=== PATIENT | male | born 1980 | race Caucasian/White ===

== ENCOUNTER 2019-03-24 03:53 | Inpatient (IN) | payer BC ==
[~2019-03-24] VITALS: Ht 175.3 cm; Wt 72.6 kg
--- NOTE | 2019-03-24 04:16 | NUR ---
PT BIBSELF C/O ABD' PAIN X 5 HR, + VOMITTING AND LOOSE STOOL, -HEMOPTYSIS, VS STABLE, AFEBRILE, PLACED ON ER BED 10, AWAITING FOR DR IVY TO FLAVIA.
[2019-03-24] MEDS ORDERED: IV NS 0.9% 1,000 ML BAG IV ONE (04:30)
[2019-03-24] MEDS ORDERED: ONDANSETRON HCL/PF 4 MG/2 ML VIAL IVP ONE (04:30)
[2019-03-24] MEDS ORDERED: HYDROMORPHONE INJ 2 MG/ML DISP.SYRIN IV ONE (04:30)
--- NOTE | 2019-03-24 04:38 | NUR ---
US GALLBLADDER DONE AT BEDSIDE.
[2019-03-24] MEDS ORDERED: ONDANSETRON HCL/PF 4 MG/2 ML VIAL ONE (04:43)
[2019-03-24] MEDS ORDERED: HYDROMORPHONE INJ 2 MG/ML DISP.SYRIN ONE (04:43)
[2019-03-24 04:51] LABS: BASOPHILS # (AUTO) 0.1 /CMM (0.0-0.2); BASOPHILS % (AUTO) 0.4 % (0.0-2.0); EOSINOPHILS % (AUTO) 1.6 % (0.0-6.0); HEMATOCRIT 40 % (39-51); HEMOGLOBIN 13.3 g/dL (13.5-17.5); LYMPHOCYTES # (AUTO) 2.5 /CMM (0.8-4.8); MEAN CORPUSCULAR HGB CONC 33 g/dl (31.0-36.0); MEAN CORPUSCULAR VOLUME 85 fL (80-96); MONOCYTES # (AUTO) 1.4 /CMM (0.1-1.30); MONOCYTES % (AUTO) 8.5 % (2.0-12.0); NEUTROPHILS # (AUTO) 12.4 /CMM (1.8-8.9); NEUTROPHILS % (AUTO) 74.5 % (43.0-81.0); PLATELET COUNT (AUTO) 354 /CMM (150-450); RED BLOOD CELL COUNT(AUTO) 4.71 MIL/uL (4.5-6.0); WHITE BLOOD COUNT (AUTO) 16.6 K/uL (4.3-11.0)
[2019-03-24 05:06] LABS: ALANINE AMINOTRANSFERASE 24 U/L (12-78); ALBUMIN 4.3 g/dL (3.4-5.0); ALKALINE PHOSPHATASE 66 U/L (46-116); ASPARTATE AMINOTRANSFERASE 20 U/L (15-37); BILIRUBIN,DIRECT 0.1 mg/dL (0.0-0.2); BILIRUBIN,TOTAL 0.5 mg/dL (0.2-1.0); CALCIUM, SERUM 9.7 mg/dL (8.5-10.1); CARBON DIOXIDE 30 mmol/L (21-32); CHLORIDE 102 mmol/L (98-107); CREATININE 1.1 mg/dL (0.6-1.3); GLUCOSE 128 mg/dL (74-106); LIPASE 99 U/L (73-393); POTASSIUM 3.6 mmol/L (3.5-5.1); SODIUM SERUM 143 mmol/L (136-145); TOTAL PROTEIN, SERUM 7.6 g/dL (6.4-8.2); UREA NITROGEN, BLOOD 16 mg/dL (7-18)
--- NOTE | 2019-03-24 05:26 | NUR ---
PT TAKEN TO CT ABD' AND PELVIS.
[2019-03-24] MEDS ORDERED: KETOROLAC TROMETHAMINE INJ 30 MG/ML VIAL ONE (05:47)
[2019-03-24] MEDS ORDERED: HYDROMORPHONE 1 MG/1 ML DISP.SYRIN ONE (05:48)
[2019-03-24] MEDS ORDERED: PIPERACILLIN /TAZOBACTAM 3.375 G VIAL IV ONE (05:52)
--- NOTE | 2019-03-24 05:55 | NUR ---
BED 203
[2019-03-24] MEDS ORDERED: KETOROLAC TROMETHAMINE INJ 30 MG/ML VIAL IV ONE (06:00)
[2019-03-24] MEDS ORDERED: HYDROMORPHONE 1 MG/1 ML DISP.SYRIN IV ONE ×3 (06:00→19:00)
[2019-03-24] MEDS ORDERED: PIPERACILLIN /TAZOBACTAM 3.375 G in IV D5W 50 ML IV ONE (06:00)
[2019-03-24 06:57] LABS: APPEARANCE,URINE CLEAR (CLEAR); BILIRUBIN,URINE NEGATIVE (NEGATIVE); BLOOD, URINE NEGATIVE Ery/uL (NEGATIVE); COLOR,URINE YELLOW (YELLOW); KETONES,URINE 1+ (NEGATIVE); LEUKOCYTE ESTERASE ,URINE NEGATIVE (NEGATIVE); NITRITE, URINE NEGATIVE (NEGATIVE); OCCULT BLOOD STOOL NEGATIVE (NEGATIVE); PH,URINE 7.5 (5.0-8.0); PROTEIN,URINE NEGATIVE (NEGATIVE); UGLUCOSE NEGATIVE (NEGATIVE); UROBILINOGEN,URINE 0.2 EU/dL (0.2)
[2019-03-24] MEDS ORDERED: BALS750C PO (07:11)
[2019-03-24] MEDS ORDERED: PRED5TAB48 PO (07:11)
--- NOTE | 2019-03-24 07:18 | NUR ---
GAVE REPORT TO KELVIN DE LA CRUZ NETO
--- NOTE | 2019-03-24 07:48 | NUR ---
REPORT GIVEN TO Reinaldo LORENZO RN
[2019-03-24 08:00] VITALS: BP 115/69
--- NOTE | 2019-03-24 08:10 | NUR ---
wheeled out via wheelchair by EMT and transferred to MS unit
--- NOTE | 2019-03-24 08:30 | NUR ---
PRACTICE MANAGEMENT CONSULTANT NOTES PT ARRIVED ONTO THE UNIT AT 0830. PT COMPLAINS OF ABDOMINAL PAIN FOR 6 WEEKS. ALL PT BELONGINGS ACCOUNTED FOR AND DOCUMENTED. WILL WAIT FOR ORDERS.
[2019-03-24] MEDS ORDERED: IV NS 0.9% 1,000 ML BAG IV PRN (09:30)
[2019-03-24] MEDS ORDERED: MORPHINE SULFATE INJ 4 MG/ML DISP.SYRIN IV PRN ×2 (09:30→13:30)
--- NOTE | 2019-03-24 09:30 | NUR ---
RN NOTES INFORMED DR OQUENDO OF NEW ADMISSION. DR OQUENDO ORDERED NS @100ML/HR AND MORPHINE 2MG Q4H PRN. WILL CARRY OUT ORDERS.
[2019-03-24] MEDS: IV NS 0.9% 1,000 ML IV PRN (10:08)
[2019-03-24] MEDS ORDERED: ONDANSETRON HCL/PF 4 MG/2 ML VIAL IVP PRN (11:00)
[2019-03-24] MEDS ORDERED: PIPERACILLIN /TAZOBACTAM 4.5 G in IV D5W 50 ML IV SCH (12:00)
[2019-03-24] MEDS: PIPERACILLIN /TAZOBACTAM 3.375 G in IV D5W 100 ML IV SCH ×2 (13:00→20:38)
--- NOTE | 2019-03-24 13:00 | NUR ---
RN NOTES INFORMED DR OQUENDO THAT PATIENT STILL COMPLAINING OF PAIN. DR OQUENDO ORDERED TO INCREASE MORPHINE TO 3MG Q4H.
--- NOTE | 2019-03-24 14:30 | NUR ---
RN NOTES INFORMED DR OQUENDO THAT 3MG MORPHINE NOT IMPROVING PATIENT'S PAIN. AT THIS TIME NO NEW ORDERS.
[2019-03-24 16:00] VITALS: BP 143/72
--- NOTE | 2019-03-24 17:54 | NUR ---
RN NOTES PER RADIOLOGY PATIENT CANNOT HAVE MORPHINE 4-6 HOURS BEFORE HIDA SCAN. [address] OQUENDO ORDERED ONE TIME ORDER OF DILAUDID. SCAN TIME CHANGED FROM 3PM TO 7PM. WILL ADMINISTER ONE TIME ORDER AT 1830.
[2019-03-24 17:56] LABS: ALBUMIN 3.8 g/dL (3.4-5.0); BILIRUBIN,DIRECT 0.2 mg/dL (0.0-0.2); BILIRUBIN,TOTAL 1.4 mg/dL (0.2-1.0)
--- NOTE | 2019-03-24 19:30 | NUR ---
RN NOTES: RECEIVED REPORT FROM TAVO LOZANO, PT CURRENTLY OFF THE UNIT, HIDA SCAN ONGOING
--- NOTE | 2019-03-24 20:27 | NUR ---
RN NOTES: PT BACK FROM HIDA SCAN , PER NELLIE NUCLEAR MED, "THEY DIDN'T SEE GALLBLADDER", DO NOT GIVE ANYTHING INCLUDING PAIN MEDS OR FOOD, HE WILL STUDIO ASSOCIATE PT AT 2230 FOR ANOTHER DELAYED IMAGING FOR 10MINS.
--- NOTE | 2019-03-24 20:28 | NUR ---
RN NOTES: PT ASSISTED BACK TO BED, A/O X4, ON RA RESPIRATION EVEN AND UNLABORED, STATED PAIN IS TOLERABLE /10, RUQ PAIN, IV ACCESS PATENT AND FLUSHING WELL, CONNECTED BACK TO IVF ORDERED. DISCUSSED PLAN OF CARE TO PT. SAFETY PRECAUTIONS FOR FALL INITIATED, CALL LIGHT IN REACH, WILL CONTINUE MONITORING PT.
--- NOTE | 2019-03-24 20:30 | NUR ---
RN NOTES: CLARIFIED WITH NELLIE VARNER IF CAN GIVE ATB ZOSYN THRU IV, PER NELLIE SWANN TO GIVE ANTIBIOTIC
--- NOTE | 2019-03-24 20:51 | NUR ---
LATE REASSESSMENT OF DILAUDID X 1: PT GOT BACK FROM HIDA SCAN, PER PT DILAUDID HELPED WITH HIS PAIN THAN MORPHINE, PS 04/15, CLAIMED ITS TOLERABLE
--- NOTE | 2019-03-24 21:04 | NUR ---
RN NOTES: ACCORDING TO PT, MORPHINE DOESNT HELP MANAGE HIS PAIN, HE WAS GIVEN DILAUDID PRIOR TO GOING TO HIDA SCAN, PT CLAIMED ITS MORE EFFECTIVE THAN MORPHINE, CONTACTED MD MASTER BAKER, RELAYED THE SITUATION, RECEIVED TELEPHONE ORDER OF "DILAUDID 1MG IVP Q4HRS PRN FOR SEVERE PAIN", DC MORPHINE ORDER. READ BACK COMPLETED, ORDERS NOTED AND CARRIED OUT.
[2019-03-24 21:11] VITALS: BP 136/74
--- NOTE | 2019-03-24 22:41 | NUR ---
RN NOTES: NELLIE CAME BACK TO SEC REPORTING CONSULTANT PT, BROUGHT DOWN TO NM FOR DELAYED IMAGING FOR 10MINS.
--- NOTE | 2019-03-24 23:13 | NUR ---
RN NOTES: PT BACK TO THE UNIT, TEST COMPLETED, PER NELLIE NOW OKAY TO RECEIVE PAIN MEDS AND RESUME DIET IF ANYTHING IS ORDER
[2019-03-24] MEDS: HYDROMORPHONE 1 MG/1 ML DISP.SYRIN IV PRN (23:17)
--- NOTE | 2019-03-24 23:17 | NUR ---
PRN DILAUDID: PT C/O RUQ ABDOMINAL PAIN 06/15 REQUESTING FOR PAIN MEDICATION, PRN DILAUDID 1MG IVP ADMINISTERED TO THE PT AT THIS TIME. EDUCATE PT REGARDING MEDICATION ACTION AND SIDE EFFECTS. PLACED PT ON LOW FLOW OXYGEN SUPPLEMENT 2L NC. URINAL PLACED WITHIN REACH, CALL LIGHT IN REACH. WILL CONTINUE TO MONITOR AND REASSESS PT
--- NOTE | 2019-03-25 03:42 | NUR ---
RN NOTES: MD MADE AWARE OF HIDA SCAN RESULT
[2019-03-25] MEDS: PIPERACILLIN /TAZOBACTAM 3.375 G in IV D5W 100 ML IV SCH ×3 (04:00→20:44)
[2019-03-25 04:30] VITALS: BP 121/69
[2019-03-25] MEDS: HYDROMORPHONE 1 MG/1 ML DISP.SYRIN IV PRN ×3 (04:36→18:39)
--- NOTE | 2019-03-25 04:36 | NUR ---
PRN DILAUDID: PT C/O 06/15 RUQ ABDOMINAL PAIN REQUESTING FOR PAIN MEDICATION, PRN DILAUDID 1MG IVP ADMINISTERED AT THIS TIME, WILL CONTINUE TO MONITOR AND REASSESS PT. TAKEN PT'S VS NOTED 100.9 TEMP, COOLING MEASURES PROVIDED, THICK BLANKET OFF/REMOVED, ICE PACK PROVIDED, WILL RECHECK TEMP AGAIN
--- NOTE | 2019-03-25 05:33 | NUR ---
RN NOTES: RECHECK TEMP, 100.6 , CONTINUE COOLING MEASURES
--- NOTE | 2019-03-25 06:50 | NUR ---
RN CLOSING NOTES: PT REMAINS ON 2L OXYGEN VIA NC, RESPIRATION EVEN AND UNLABORED, LAST PAIN MEDS ADMINISTERED AT 0436AM. IV ACCESS REMAINS PATENT AND FLUSHING WELL, INFUSING WITH IVF ORDERED. PT KEPT ON NPO ORDERED. VS REMAINS STABLE, NEEDS ATTENDED. SAFETY PRECAUTIONS FOR FALL REMAINS ENGAGED, CALL LIGHT IN REACH, WILL ENDORSE TO DAY RN FOR CONTINUITY OF CARE.
[2019-03-25 06:54] LABS: BASOPHILS % (AUTO) 0.1 % (0.0-2.0); EOSINOPHILS % (AUTO) 0.2 % (0.0-6.0); HEMATOCRIT 38 % (39-51); HEMOGLOBIN 12.6 g/dL (13.5-17.5); LYMPHOCYTES # (AUTO) 1.8 /CMM (0.8-4.8); MEAN CORPUSCULAR HGB CONC 34 g/dl (31.0-36.0); MEAN CORPUSCULAR VOLUME 86 fL (80-96); MONOCYTES # (AUTO) 1.7 /CMM (0.1-1.30); MONOCYTES % (AUTO) 10.8 % (2.0-12.0); NEUTROPHILS # (AUTO) 12.4 /CMM (1.8-8.9); NEUTROPHILS % (AUTO) 77.9 % (43.0-81.0); PLATELET COUNT (AUTO) 276 /CMM (150-450); RED BLOOD CELL COUNT(AUTO) 4.39 MIL/uL (4.5-6.0)
--- NOTE | 2019-03-25 07:15 | NUR ---
MS/RN OPENING NOTE THE PATIENT ALERT AND ORIENTED X4. DENIES PAIN AT THIS TIME. RESPIRATION REGULAR AND UNLABORED. DENIES PAIN. LAC G 20 PATENT AND NORMAL SALINE INFUSING AT 100ML/HR AND NO S/S INFILTRATION NOTED. BED LOW AND LOCKED. SIDE RAILS UP X3. CALL LIGHT WITHIN REACH. WILL CONTINUE TO MONITOR.
[2019-03-25 07:19] LABS: THYROID STIMULATING HORMONE 0.632 uIU/mL (0.358-3.74)
[2019-03-25 07:28] LABS: ALBUMIN 3.5 g/dL (3.4-5.0); BILIRUBIN,TOTAL 1.5 mg/dL (0.2-1.0); CALCIUM, SERUM 9.2 mg/dL (8.5-10.1); CREATININE 1.1 mg/dL (0.6-1.3); MAGNESIUM 1.9 mg/dL (1.8-2.4); PHOSPHORUS 3.5 mg/dL (2.5-4.9); TOTAL PROTEIN, SERUM 6.9 g/dL (6.4-8.2)
[2019-03-25] MEDS: PANTOPRAZOLE 40 MG TABLET.DR PO SCH (07:30)
[2019-03-25 08:00] VITALS: BP 118/73
--- NOTE | 2019-03-25 12:23 | NUR ---
MS/RN NOTE THE PATIENT`S TEMP 103.1. LEFT MSG TO DR OQUENDO TO CALL BACK FOR AN ORDER. COOLING MEASURES TAKEN
--- NOTE | 2019-03-25 13:00 | NUR ---
MS/RN NOTE STILL NOT CALL FROM DR OQUENDO. TEMP LOWERED TO 100.3F AFTER COOLING MEASURES. WILL CONTINUE TO MONITOR.
[2019-03-25] MEDS ORDERED: ACETAMINOPHEN 325 MG TABLET PO ONE (13:30)
--- NOTE | 2019-03-25 13:31 | NUR ---
MS/RN NOTE TYLENOL 650 MG PO DUE AT 1331 NOT ADMINISTERED BECAUSE TEMP LOWERED TO 97.9.
[2019-03-25 16:00] VITALS: BP 128/76
--- NOTE | 2019-03-25 18:15 | NUR ---
MS/RN NOTE TEMP 101.8. COOLING MEASURE DONE.
--- NOTE | 2019-03-25 18:22 | NUR ---
MS/RN CLOSING NOTE THE PATIENT ALERT AND ORIENTED X4. IN ROOM AIR AND SATURATION IS AT 98%. RESPIRATION REGULAR AND UNLABORED. DENIES PAIN. THE PATIENT IN NO APPARENT DISTRESS. ABDOMEN SOFT AND NON-DISTENDED. THE PATIENT ABLE TO VOID FREELY AND NOTED CLEAR, DARK YELLOW COLOR URINE WITH NO FOUL ODOR. NO BLADDER DISTENSION NOTED. GOOD AND GENTLE SKIN CARE RENDERED. KEPT CLEAN, DRY AND COMFORTABLE. ALL NEEDS ATTENDED AND ANTICIPATE. CALL LIGHT WITHIN REACH. WILL ENDORSE TO TRUCK SHOP MECHANIC.
--- NOTE | 2019-03-25 18:30 | NUR ---
MS/RN NOTE TEMP 100.3. CONTINUING COOLING MEASURES. DR OQUENDO IS AWARE.
--- NOTE | 2019-03-25 19:30 | NUR ---
MS RN NOTE: PATIENT RESTING IN BED, NO ACUTE DISTRESS NOTED. BREATHING EVEN AND UNLABORED, NO SOB NOTED. IV TO LAC IN PLACE, INFUSING NS AT 100ML/HR. BED LOCKED AND IN LOWEST POSITION, CALL LIGHT IN REACH. WILL CONTINUE TO MONITOR.
[2019-03-25 20:00] VITALS: BP 128/69
[2019-03-25] MEDS: IV NS 0.9% 1,000 ML IV PRN (20:44)
--- NOTE | 2019-03-25 22:15 | NUR ---
MS RN NOTE: PATIENT SCHEDULED FOR SURGERY TOMORROW MORNING AT 0730. CONSENTS SIGNED AND IN CHART. PATIENT NPO. WILL CONTINUE TO MONITOR.
[2019-03-26] VITALS (8 sets, daily range): BP systolic 119–131; BP diastolic 60–80
[2019-03-26] MEDS: HYDROMORPHONE 1 MG/1 ML DISP.SYRIN IV PRN ×4 (01:44→22:33)
[2019-03-26] MEDS: PIPERACILLIN /TAZOBACTAM 3.375 G in IV D5W 100 ML IV SCH ×3 (04:22→20:37)
--- NOTE | 2019-03-26 06:10 | NUR ---
MS RN NOTE: PATIENT RESTING IN BED, NO ACUTE DISTRESS NOTED. BREATHING EVEN AND UNLABORED, NO SOB NOTED. IV TO LAC IN PLACE. PATIENT TO HAVE SURGERY THIS MORNING, CONSENT SIGNED AND FILED IN CHART. BED LOCKED AND IN LOWEST POSITION, CALL LIGHT IN REACH. WILL ENDORSE TO DAY NURSE TO CONTINUE WITH PLAN OF CARE.
[2019-03-26 06:35] LABS: BASOPHILS % (AUTO) 0.3 % (0.0-2.0); EOSINOPHILS % (AUTO) 1.3 % (0.0-6.0); HEMATOCRIT 36 % (39-51); HEMOGLOBIN 12.2 g/dL (13.5-17.5); LYMPHOCYTES # (AUTO) 1.9 /CMM (0.8-4.8); LYMPHOCYTES % (AUTO) 14.4 % (20.0-44.0); MEAN CORPUSCULAR HGB CONC 34 g/dl (31.0-36.0); MEAN CORPUSCULAR VOLUME 86 fL (80-96); MONOCYTES % (AUTO) 7.8 % (2.0-12.0); NEUTROPHILS % (AUTO) 76.2 % (43.0-81.0); PLATELET COUNT (AUTO) 269 /CMM (150-450); RED BLOOD CELL COUNT(AUTO) 4.21 MIL/uL (4.5-6.0); WHITE BLOOD COUNT (AUTO) 13.1 K/uL (4.3-11.0)
[2019-03-26] MEDS ORDERED: ANESTHESIA TRAY IN PYXIS 1 EA TRAY MC ONE (06:55)
[2019-03-26] MEDS ORDERED: BUPIVACAINE 0.5 % PF 150 MG/30 ML VIAL ONE (07:01)
[2019-03-26 07:19] LABS: ALBUMIN 3.1 g/dL (3.4-5.0); MAGNESIUM 2.1 mg/dL (1.8-2.4); PHOSPHORUS 2.4 mg/dL (2.5-4.9); POTASSIUM 3.9 mmol/L (3.5-5.1); TOTAL PROTEIN, SERUM 7.1 g/dL (6.4-8.2)
[2019-03-26] MEDS ORDERED: FENTANYL PF 100MCG/2ML AMPUL ONE ×2 (07:26→07:27)
[2019-03-26] MEDS ORDERED: MIDAZOLAM HCL 2 MG/2ML VIAL ONE (07:27)
[2019-03-26] MEDS: PANTOPRAZOLE 40 MG TABLET.DR PO SCH (07:30)
[2019-03-26 08:16] LABS: IMMUNOGLOBULIN A, SERUM 40 mg/dL (90-386); IMMUNOGLOBULIN G, SERUM 711 mg/dL (700-1600); IMMUNOGLOBULIN M, SERUM 123 mg/dL (20-172)
[2019-03-26] MEDS ORDERED: HYDROMORPHONE 1 MG/1 ML DISP.SYRIN ONE (09:05)
--- NOTE | 2019-03-26 09:56 | NUR ---
MS/RN NOTE THE PATIENT IS RECEIVED FROM OR IN BED. PATIENT ALERT AND ORIENTED X2. RECEIVING OXYGEN AT 2L/MIN VIA NASAL CANNULA. DENIES SOB. DENIES PAIN. FRANKLIN DRAIN PRESENT ON RIGHT ABDOMINAL QUAD WITH SEROUS DRAINAGE. INCISIONS INTACT WITH NO DRAINAGE. LAC G 20 PATENT AND SALINE LOCKED. BED LOW AND LOCKED. SIDE RAILS UP X3. CALL LIGHT WITHIN REACH. WILL CONTINUE TO MONITOR.
[2019-03-26] MEDS ORDERED: HYDROCODONE/APAP 5/325MG 1 EACH TABLET PO PRN (10:30)
--- NOTE | 2019-03-26 12:05 | NUR ---
MS/RN NOTE BLOOD SUGAR IS 43. WILL CHECK IT AGAIN. Addendum: 03/26/19 at 1428 by GLORIA DE LA TORRE RN ENTERED ON WRONG PATIENT
[2019-03-26] MEDS: IV NS 0.9% 1,000 ML IV PRN (12:11)
[2019-03-26] MEDS ORDERED: NEUTRA PHOS 1 POWD.PACKET PO ONE (16:00)
--- NOTE | 2019-03-26 18:27 | NUR ---
MS/RN NOTE THE PATIENT ALERT AND ORIENTED X4. IN ROOM AIR AND SATURATION IS AT 97%. DENIES SOB. RESPIRATION REGULAR AND UNLABORED. DENIES PAIN AT THIS TIME. FRANKLIN DRAIN PRESENT AND DRAINING SEROUS FLUID. THE THREE INCISIONS CLEAN AND DRY. NO S/S INFECTION NOTED. PATIENT IS ON CLEAR LIQUID DIET AND JOHANNE IT WELL. LAC G 20 PATENT AND NORMAL SALINE INFUSING AT 100ML/HR AND NO S/S INFILTRATION NOTED. BED LOW AND LOCKED. SIDE RAILS UP X3. CALL LIGHT WITHIN REACH. WILL ENDORSE TO ORDNANCE ENGINEERING TECHNICIAN.
--- NOTE | 2019-03-26 18:57 | NUR ---
MS/RN NOTE 90 ML OF SEROUS FLUID WAS NOTED IN FRANKLIN DRAIN DURING THE SHIFT.
--- NOTE | 2019-03-26 19:43 | NUR ---
MS RN NOTE: PATIENT RESTING IN BED, NO ACUTE DISTRESS NOTED. BREATHING EVEN AND UNLABORED, NO SOB NOTED. IV TO LAC IN PLACE, INFUSING NS AT 100ML/HR. FRANKLIN DRAIN PLACE, EMPTY AT THIS TIME WITH GOOD SUCTION. BED LOCKED AND IN LOWEST POSITION, CALL LIGHT IN REACH. WILL CONTINUE TO MONITOR.
[2019-03-26] MEDS: HYDROCODONE/APAP 5/325MG 1 EACH TABLET PO PRN (20:52)
--- NOTE | 2019-03-26 21:00 | NUR ---
MS RN NOTE: PATIENT COMPLAINS OF ABDOMINAL PAIN 05/15, NORCO 5/325MG 1 TAB ORAL GIVEN PER MD ORDER. WILL CONTINUE TO MONITOR.
--- NOTE | 2019-03-26 22:45 | NUR ---
MS RN NOTE: PATIENT REPOSITIONED SELF AND COMPLAINS OF ABDOMINAL PAIN 07/16, DILAUDID 1MG IV GIVEN GIVEN PER MD ORDER. WILL CONTINUE TO MONITOR.
[2019-03-27] MEDS: PIPERACILLIN /TAZOBACTAM 3.375 G in IV D5W 100 ML IV SCH ×2 (04:53→13:20)
[2019-03-27] MEDS: IV NS 0.9% 1,000 ML IV PRN (04:55)
[2019-03-27] MEDS: HYDROMORPHONE 1 MG/1 ML DISP.SYRIN IV PRN (05:22)
--- NOTE | 2019-03-27 06:15 | NUR ---
MS RN NOTE: PATIENT RESTING IN BED, NO ACUTE DISTRESS NOTED. BREATHING EVEN AND UNLABORED, NO SOB NOTED. IV TO LAC IN PLACE, INFUSING NS AT 100ML/HR. FRANKLIN DRAIN PLACE, DRAINED 50ML OF SEROSANGUINEOUS DRAINAGE WITH GOOD SUCTION. BED LOCKED AND IN LOWEST POSITION, CALL LIGHT IN REACH. WILL ENDORSE TO DAY NURSE TO CONTINUE WITH PLAN OF CARE.
[2019-03-27 07:21] LABS: BASOPHILS % (AUTO) 0.1 % (0.0-2.0); HEMATOCRIT 32 % (39-51); LYMPHOCYTES # (AUTO) 0.9 /CMM (0.8-4.8); LYMPHOCYTES % (AUTO) 8.5 % (20.0-44.0); MEAN CORPUSCULAR HGB CONC 34 g/dl (31.0-36.0); MEAN CORPUSCULAR VOLUME 85 fL (80-96); MONOCYTES # (AUTO) 0.7 /CMM (0.1-1.30); MONOCYTES % (AUTO) 6.7 % (2.0-12.0); NEUTROPHILS % (AUTO) 84.7 % (43.0-81.0); PLATELET COUNT (AUTO) 298 /CMM (150-450); RED BLOOD CELL COUNT(AUTO) 3.82 MIL/uL (4.5-6.0); WHITE BLOOD COUNT (AUTO) 10.6 K/uL (4.3-11.0)
[2019-03-27 07:38] LABS: CALCIUM, SERUM 8.8 mg/dL (8.5-10.1); MAGNESIUM 2.2 mg/dL (1.8-2.4); PHOSPHORUS 3.1 mg/dL (2.5-4.9); POTASSIUM 4.2 mmol/L (3.5-5.1)
[2019-03-27 08:00] VITALS: BP 127/80
[2019-03-27 08:05] LABS: CREATININE 0.8 mg/dL (0.6-1.3)
[2019-03-27] MEDS: PANTOPRAZOLE 40 MG TABLET.DR PO SCH (08:58)
--- NOTE | 2019-03-27 09:10 | NUR ---
POLISH COMPOUNDER NOTES RN RECEIVED PATIENT IN STABLE CONDITION FROM [facility]. A/OX4, ABLE TO MAKE NEEDS KNOWN. NOT IN ANY FORM OF DISTRESS, NO SOB. DENIED PAIN OR DISCOMFORT AT THIS TIME. IV ACCESS, INTACT AND PATENT.FRANKLIN DRAIN IN PLACE. KEPT PATIENT SAFE AND COMFORTABLE. BED IN LOW/LOCKED POSITION, SIDERAILS UPX2, CALL LIGHT IN REACH. WILL CONTINUE TO MONITOR ACCORDINGLY.
--- NOTE | 2019-03-27 09:26 | NUR ---
EMPTIED FRANKLIN DRAIN, OUTPUT 35CC. KEPT DRAIN DEFLATED.
--- NOTE | 2019-03-27 13:00 | NUR ---
EMPTIED FRANKLIN DRAIN, OUTPUT 10CC. KEPT FRANLKIN DRAIN DEFLATED.
[2019-03-27] MEDS ORDERED: HYDR-4384 PO (13:14)
[2019-03-27 14:10] LABS: *ANCANTIMYELOPEROXIDASE (MPO) <9.0 U/mL (0.0-9.0); *ANCANTIPROTEINASE 3 (PR-3) AB <3.5 U/mL (0.0-3.5)
[2019-03-27 15:08] LABS: *ANCA ATYPICAL p-ANCA <1:20 titer (Neg:<1:20); *ANCA CYTOPLASMIC (C-ANCA) <1:20 titer (Neg:<1:20); *ANCA PERINUCLEAR (P-ANCA) <1:20 titer (Neg:<1:20)
[2019-03-27 16:00] VITALS: BP 111/70
[2019-03-27] MEDS: HYDROCODONE/APAP 5/325MG 1 EACH TABLET PO PRN (16:26)
--- NOTE | 2019-03-27 17:30 | NUR ---
DISCHARGED PATIENT IN STABLE CONDITION PICKED UP BY GIRLFRIEND. ACCOMPANIED BY BERENICE GONZALES AT THE [facility]. DISCHARGED INSTRUCTIONS GIVEN, VERBALIZED UNDERSTANDING. DC PAPERWORK GIVEN. ALL BELONGINGS RETURNED, CHECKLIST SIGNED. DR TAYLOR'S OFFICE INFO GIVEN, AND PATIENT WILL FOLLOW UP OUTPATIENT. PATIENT AWARE THAT [facility] WILL CONTACT HIM. IV ACCESS REMOVED, NO COMPLICATIONS. NAME BAND REMOVED. PHOTOS TAKEN ON SURGICAL INCISIONS. GIVEN SOME SUPPLIES FOR DRESSING THE FRANKLIN DRAIN. FRANKLIN DRAIN IN PLACE, INSTRUCTED PATIENT TO KEPT FRANKLIN DRAIN DEFLATED TO SUCTION THE DRAIN, VERBALIZED UNDERSTANDING.
== END 2019-03-27 17:45 | disposition home health service (06) | DRG 418 ==
LOC: ER 03:57 → MEDSG2 06:00
PROVIDERS: ATTEND Registered Nurse
PROC: 0FT44ZZ Resection of Gallbladder, Percutaneous Endoscopic Approach (ICD-10-PCS; principal; 2019-03-27)
DX: K81.0 Acute cholecystitis (principal); K50.90 Crohn's disease, unspecified, without complications; K82.0 Obstruction of gallbladder; R65.10 Systemic inflammatory response syndrome (SIRS) of non-infectious origin without acute organ dysfunction; D72.829 Elevated white blood cell count, unspecified; R11.2 Nausea with vomiting, unspecified; N28.1 Cyst of kidney, acquired; R16.0 Hepatomegaly, not elsewhere classified; Z88.2 Allergy status to sulfonamides
CPT/HCPCS: 36415; 71045-TC; 76705-TC; 78226; 80048-TC; 80053-TC; 80061-TC; 80076-TC; 81000-TC; 82247-TC; 82248-TC; 82272-TC; 82784; 83520; 83690-TC; 83735-TC; 84100-TC; 84443-TC; 84484-TC; 85025-TC; 85730-TC; 86140-TC; 86256; 86850-TC; 87081-TC; A9537; G0378; J1100; J1170; J1885; J2250; J2270; J2405; J2543; J2704; J2710; J2765; J3010; J3490; J7030; J7040; J7060